=== PATIENT | female | born 1985 | race Caucasian/White ===

== ENCOUNTER 2021-05-25 13:46 | Emergency (ER) | payer OTHER ==
[2021-05-25 14:22] VITALS: BP 138/71; PULSE 96; RESP 19; TEMP 98.2
--- NOTE | 2021-05-25 16:45 | ED ---
General Adult HPI - General Chief complaint: Neuro Symptoms/Deficit Stated complaint: Oral Pain Time Seen by Provider: 05/25/21 16:01 Source: patient Mode of arrival: ambulatory Limitations: no limitations - History of Present Illness Initial comments: Dictation was produced using [employer] dictation software. please excuse any grammatical, word or spelling errors. Chief Complaint: 36-year-old female presents emergency department for p aresthesias of the left upper extremity, left neck and left face History of Present Illness: 36-year-old female she has history of poor dentition. She is here in emergency department because over the last couple days she developed paresthesias to the left upper extremity left neck and left face. Patient denies any neck pain. He states the paresthesias encompass her third to fifth digit on her left hand, medial palm a little to her mid biceps area. States that she also has paresthesias to the left upper and lower face and left lateral neck. Patient has a history of stroke. She states she has some sort a history of white matter disease. She has not seen a specialist for this. Denies any nausea or vomiting. Denies any ataxia or difficulty ambulating. She works as a cath lab nurse. Concerned she might be having a stroke. The ROS documented in this emergency department record has been reviewed and confirmed by me. Those systems with pertinent positive or negative responses have been documented in the HPI. All other systems are other negative and/or noncontributory. PHYSICAL EXAM: General Impression: Alert and oriented x3, not in acute distress HEENT: Normocephalic atraumatic, extra-ocular movements intact, pupils equal and reactive to light bilaterally, mucous membranes moist. Cardiovascular: Heart regular rate and rhythm Chest: Able to complete full sentences, no retractions, no tachypnea Abdomen: abdomen soft, non-tender, non-distended, no organomegaly Musculoskeletal: Pulses present and equal in all extremities, no peripheral edema Motor: no focal deficits noted Neurological: CN II-XII grossly intact, no focal deficits noted, patient reports deficit to light touch of the left upper extremity, left face and left neck Skin: Intact with no visualized rashes Psych: Normal affect and mood ED course: 36-year-old male presents with sensory deficit to the left upper extremity, left neck and left face. Patient does not have any other neurologic deficits. No weakness. Paresthesias encompass the left upper and left lower face. Signs upon arrival are within acceptable limits. Patient evaluated the bedside found to be stable medical condition. Patient's symptoms likely not upper motor neuron issue given that there is involvement of the left upper face. CBC, metabolic panel is unremarkable. HCG is negative. Computed tomography scan of the brain is unremarkable. At this point is unclear what is causing patient's paresthesias. Besides the sensory issue she's not having any other neurologic deficits. Highly doubt that this is a central process. Patient is reevaluated at the bedside at 5:45 PM upon a be in stable medical condition. Patient be discharged advised follow-up with her regular doctor. Patient given advice for bad tooth. - Related Data Home Medications Medication Instructions Recorded Confirmed Albuterol Sulfate [Proair Hfa] 2 puff INHALATION RT-Q6H PRN 05/25/21 05/25/21 Ascorbic Acid [Vitamin C] 1,000 mg PO DAILY 05/25/21 05/25/21 Qakmg-Tejquk-Imbajth (Supplement) 1 tab PO DAILY 05/25/21 05/25/21 Montelukast [Singulair] 10 mg PO DAILY PRN 05/25/21 05/25/21 Multivitamins, Thera [Multivitamin 1 tab PO DAILY 05/25/21 05/25/21 (formulary)] Turmeric Root Extract [Turmeric] 500 mg PO DAILY 05/25/21 05/25/21 Zinc 50 mg PO DAILY 05/25/21 05/25/21 Previous Rx's Medication Instructions Recorded Penicillin V Potassium [Pen Vee K] 500 mg PO Q6H 7 Days #30 tablet 05/25/21 Allergies Allergy/AdvReac Type Severity Reaction Status Date / Time No Known Allergies Allergy Verified 05/25/21 16:51 Review of Systems ROS Statement: Those systems with pertinent positive or pertinent negative responses have been documented in the HPI. ROS Other: All systems not noted in ROS Statement are negative. Past Medical History Past Medical History: No Reported History History of Any Multi-Drug Resistant Organisms: None Reported Past Surgical History: No Surgical Hx Reported Smoking Status: Never smoker Past Alcohol Use History: None Reported Past Drug Use History: None Reported General Exam Limitations: no limitations Course Vital Signs 05/25/21 14:20 Temperature 98.2 F Pulse Rate 96 Respiratory 19 Rate Blood Pressure 138/71 O2 Sat by Pulse 99 Oximetry Medical Decision Making - Lab Data Result diagrams: 05/25/21 16:43 05/25/21 16:43 Lab Results 05/25/21 05/25/21 05/25/21 Range/Units 16:43 16:43 16:43 WBC 5.6 (3.8-10.6) k/uL RBC 4.11 (3.80-5.40) m/uL Hgb 12.8 (11.4-16.0) gm/dL Hct 37.4 (34.0-46.0) % MCV 90.9 (80.0-100.0) fL MCH 31.2 (25.0-35.0) pg MCHC 34.3 (31.0-37.0) g/dL RDW 12.8 (11.5-15.5) % Plt Count 151 (150-450) k/uL MPV 9.0 Neutrophils % 62 % Lymphocytes % 30 % Monocytes % 5 % Eosinophils % 1 % Basophils % 0 % Neutrophils # 3.5 (1.3-7.7) k/uL Lymphocytes # 1.7 (1.0-4.8) k/uL Monocytes # 0.3 (0-1.0) k/uL Eosinophils # 0.1 (0-0.7) k/uL Basophils # 0.0 (0-0.2) k/uL Sodium 136 L (137-145) mmol/L Potassium 4.0 (3.5-5.1) mmol/L Chloride 108 H (98-107) mmol/L Carbon Dioxide 23 (22-30) mmol/L Anion Gap 5 mmol/L BUN 10 (7-17) mg/dL Creatinine 0.72 (0.52-1.04) mg/dL Est GFR (CKD-EPI)AfAm >90 (>60 ml/min/1.73 sqM) Est GFR (CKD-EPI)NonAf >90 (>60 ml/min/1.73 sqM) Glucose 95 (74-99) mg/dL Calcium 8.8 (8.4-10.2) mg/dL Magnesium 2.0 (1.6-2.3) mg/dL Urine HCG, Qual Not Detected (Not Detectd) Disposition Clinical Impression: Paresthesias Disposition: HOME SELF-CARE Condition: Fair Prescriptions: Penicillin V Potassium [Pen Vee K] 500 mg PO Q6H 7 Days #30 tablet Is patient prescribed a controlled substance at d/c from ED?: No Referrals: Ty Flores, [Primary Care Provider] - 1-2 days
[2021-05-25 17:03] LABS: Basophils % (A) 0 %; Eosinophils # (A) 0.1 k/uL (0-0.7); Eosinophils % (A) 1 %; HCT 37.4 % (34.0-46.0); HGB 12.8 gm/dL (11.4-16.0); Lymphocytes # (A) 1.7 k/uL (1.0-4.8); Lymphocytes % (A) 30 %; MCH 31.2 pg (25.0-35.0); MCHC 34.3 g/dL (31.0-37.0); MCV 90.9 fL (80.0-100.0); Monocytes # (A) 0.3 k/uL (0-1.0); Monocytes % (A) 5 %; Neutrophils # (A) 3.5 k/uL (1.3-7.7); Neutrophils % (A) 62 %; Platelet Count 151 k/uL (150-450); RBC 4.11 m/uL (3.80-5.40); RDW 12.8 % (11.5-15.5); WBC 5.6 k/uL (3.8-10.6)
[2021-05-25 17:12] LABS: African American GFR (CKD) >90 (>60 ml/min/1.73 sqM); Anion Gap 5 mmol/L; Blood Urea Nitrogen 10 mg/dL (7-17); Calcium 8.8 mg/dL (8.4-10.2); Carbon Dioxide 23 mmol/L (22-30); Chloride 108 mmol/L (98-107); Glucose 95 mg/dL (74-99); Non-African American GFR(CKD) >90 (>60 ml/min/1.73 sqM); Sodium 136 mmol/L (137-145)
--- NOTE | 2021-05-25 17:41 | CT ---
EXAMINATION TYPE: CT brain wo con DATE OF EXAM: 05/25/2021 COMPARISON: None HISTORY: Left sided face and arm tingling CT DLP: 1099.4 mGycm Automated exposure control for dose reduction was used. Ventricles have normal size. There is no mass effect nor midline shift. There is no sign of intracran ial hemorrhage. Calvarium is intact. Skull base is intact. There is normal aeration of the mastoid si nuses. There is no evidence of cerebral edema. IMPRESSION: Normal unenhanced head CT scan.
== END 2021-05-25 17:58 | disposition home or self-care (01) ==
LOC: EC 13:46
DX: R20.2 Paresthesia of skin (principal)
CPT/HCPCS: 36415; 70450; 80048; 81025; 83735; 85025; 99284